=== PATIENT | female | born 1960 | race Caucasian/White ===

== ENCOUNTER → 2019-11-30 | Outpatient (CLI) | payer OTHER ==
[~2019-11-30] MED LIST: ALPR.25 PO; Aspirin EC325 MG PO; IMIP10 PO; IRBE150 PO; Inderal 20 mg T20 MG PO; METO25ER PO; MIMVEY 1-0.5 M1 EACH PO; Minocycline HC100 MG PO
[2019-12-04 06:08] LABS: CHLAMYDIA BY NAA Negative (Negative); GONOCOCCUS BY NAA Negative (Negative); TRICH VAG BY NAA Negative (Negative)
== END ==
LOC: LAB EV 13:47 → LAB SHORT 13:47
PROVIDERS: Nurse Practitioner
DX: N94.9 Unspecified condition associated with female genital organs and menstrual cycle (principal)
CPT/HCPCS: 87070; 87205; 87491; 87529; 87591; 87661

== ENCOUNTER → 2020-01-23 | Outpatient (CLI) | payer OTHER ==
[2020-01-25 15:09] LABS: HPV 16 Negative (Negative); HPV 18 Negative (Negative); HPV OTHER HR TYPES Negative (Negative)
== END | disposition home or self-care (01) ==
LOC: LAB 09:45 → LAB SHORT 09:45
PROVIDERS: Obstetrics & Gynecology
DX: Z01.419 Encounter for gynecological examination (general) (routine) without abnormal findings (principal)
CPT/HCPCS: 87624; G0123

== ENCOUNTER → 2020-10-20 | Outpatient (CLI) | payer OTHER | END | disposition home or self-care (01) | LOC: PLD 13:45 → LAB SHORT 13:45 | DX: L30.9 Dermatitis, unspecified (principal) | CPT/HCPCS: 88305; 88312 ==

== ENCOUNTER → 2021-06-26 | Outpatient (CLI) | payer OTHER | END | disposition home or self-care (01) | LOC: LAB 17:34 → LAB EV 17:34 → LAB SHORT 17:34 | DX: N39.0 Urinary tract infection, site not specified (principal) | CPT/HCPCS: 87077; 87086; 87186 ==

== ENCOUNTER → 2021-07-22 | Outpatient (CLI) | payer OTHER | END | disposition home or self-care (01) | LOC: LAB SHORT 11:22 | DX: D48.5 Neoplasm of uncertain behavior of skin (principal) | CPT/HCPCS: 88305 ==

== ENCOUNTER → 2021-08-20 | Outpatient (CLI) | payer OTHER ==
[2021-08-20 16:40] LABS: Appearance, Urine Clear (Clear); Bilirubin, Urine Neg (Neg); Blood, Urine 3+ (Neg); Color, Urine Yellow (P-Yellow); Glucose Qualitative, Urine Neg (Neg); Ketones, Urine 1+ (Neg); Leukocyte Esterase, Urine 3+ (Neg); Nitrite, Urine Neg (Neg); Protein, Urine 1+ (Neg); Urobilinogen, Urine NORM (Normal)
[2021-08-20 17:03] LABS: Bacteria Few /hpf; Squamous Epithelial Cells Rare /hpf (Few)
== END | disposition home or self-care (01) ==
LOC: LAB SHORT 13:30
PROVIDERS: Obstetrics & Gynecology
DX: R30.9 Painful micturition, unspecified (principal)
CPT/HCPCS: 81001; 87086

== ENCOUNTER → 2022-10-26 | Outpatient (CLI) | payer OTHER | LOC: LAB 08:43 → LAB SHORT 08:43 | DX: R21 Rash and other nonspecific skin eruption (principal); L81.4 Other melanin hyperpigmentation; L82.1 Other seborrheic keratosis; D18.01 Hemangioma of skin and subcutaneous tissue | CPT/HCPCS: 87070; 87205 ==

== ENCOUNTER → 2022-12-28 | Outpatient (CLI) | payer OTHER ==
[2022-12-29 10:04] LABS: Stool Occult Bld Immuno 1 Negative (NEGATIVE)
== END | disposition home or self-care (01) ==
LOC: LAB SHORT 15:59 → LAB 15:59
PROVIDERS: Physician Assistant
DX: R19.5 Other fecal abnormalities (principal)
CPT/HCPCS: 82274

== ENCOUNTER 2023-03-28 09:08 | Day surgery (SDC) | payer OTHER ==
[~2023-03-28] VITALS: Ht 165.1 cm; Wt 60.0 kg
--- NOTE | 2023-03-28 10:45 | NUR ---
03/28/23 1045 KAI MARTINEZ enema per dr marcelino -pt not cleaned out totally [id number] done clear
--- NOTE | 2023-03-28 11:49 | NUR ---
03/28/23 1149 BRANDY JUDD PT STATES THAT SHE FEELS LIKE SHE MAY HAVE A UTI. FEELS THE NEED TO URINATE. STATES ENEMA CAUSED SOME IRRATATION JUST INSIDE RECTUM.
[2023-03-28 11:53] VITALS: BP 116/85
== END 2023-03-28 11:15 | disposition home or self-care (01) ==
LOC: ORSCSDS 09:08
PROVIDERS: Internal Medicine Gastroenterology
PROC: 0DJD8ZZ Inspection of Lower Intestinal Tract, Via Natural or Artificial Opening Endoscopic (ICD-10-PCS; principal; 2023-03-28 10:30)
DX: Z12.11 Encounter for screening for malignant neoplasm of colon (principal); Z86.010 Personal history of colon polyps; K57.30 Diverticulosis of large intestine without perforation or abscess without bleeding; Z87.891 Personal history of nicotine dependence; Z79.899 Other long term (current) drug therapy
CPT/HCPCS: J2704; J7120

== ENCOUNTER → 2023-05-16 | Outpatient (CLI) | payer OTHER ==
[2023-05-17 16:10] LABS: HPV 16 Negative (Negative); HPV 18 Negative (Negative); HPV OTHER HR TYPES Negative (Negative)
== END ==
LOC: LAB SHORT 13:46 → LAB 13:46
PROVIDERS: Family Medicine
DX: Z01.419 Encounter for gynecological examination (general) (routine) without abnormal findings (principal)
CPT/HCPCS: 87624; G0145

== ENCOUNTER → 2024-12-05 | Outpatient (CLI) | payer OTHER | LOC: LAB 09:55 → LAB SHORT 09:55 | DX: N39.0 Urinary tract infection, site not specified (principal) | CPT/HCPCS: 87086 ==